=== PATIENT | male | born 1960 | race Caucasian/White ===

== ENCOUNTER 2016-09-24 19:53 | Emergency (ER) | payer OTHER ==
[~2016-09-24] VITALS: Ht 177.8 cm; Wt 92.7 kg
[~2016-09-24 19:53] MED LIST: CYCL10TA9 PO; HYDR-4003 PO; LISI10TA2 PO; LORA0.5T PO
[2016-09-24 19:57] VITALS: BP 184/113; PULSE 92; RESP 18; O2SAT 98
--- NOTE | 2016-09-24 20:02 | ED.REPORT ---
HPI-Extremity Problem Upper Date of Service Sep 24, 2016 ED Provider: Dr. Epps Pt is a generally healthy 56 y/o male presenting to the ED c/o left elbow pain and swelling onset about 2 days ago. The patient fell 2 weeks ago and had an elbow laceration for which sutures were placed. The sutures were removed 2 days ago. Pt denies fever, chills, rash. He has no history of surgeries about the elbow. 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 Nursing Notes Stated Complaint: LEFT ELBOW SWELLING Chief Complaint: Extremity Trauma Nursing Notes Reviewed: Yes Allergies: Coded Allergies: codeine (Verified Allergy, Unknown, 09/24/16) Scheduled Lisinopril (Lisinopril) 10 Mg Tablet 10 MG PO DAILY Scheduled PRN Cyclobenzaprine (Cyclobenzaprine) 10 Mg Tablet 10 MG PO TID PRN PRN Spasm Hydrocodone-Acetaminophen 5-325 mg (Hydrocodone-Acetaminophen 5-325 mg) 1 Each Tablet 1 TABLET PO Q4H PRN PRN For Pain Lorazepam (Lorazepam) 0.5 Mg Tablet 1 TAB PO TID PRN PRN For Anxiety General Time Seen by MD: 20:01 Chief Complaint Elbow injury left Hx Obtained From: Patient Arrived By: Walk-in Onset Occurred: 2 days ago Symptom Duration: Since onset Location: : Elbow left Quality: Painful Severity: Current: Mild Severity: Maximum: Mild Recent Healthcare: Recent doctor visit Similar Sx Previous: No Past Medical History Past Medical History Notes: PCP: Duncan Corey Past Medical History GI bleed Hypertension The 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 Physical Exam Initial Vital Signs Vital Signs (First) Date Time Temp Pulse Resp B/P Pulse Ox O2 Delivery O2 Flow Rate FiO2 09/24/16 19:57 36.7 92 18 184/113 98 Room Air Initial VS: Reviewed, Vital signs abnormal Head / Eyes: Atraumatic, Normocephalic, PERRL ENT: Mucous membranes moist, Conjunctiva normal, No scleral icterus Neck: Supple, Full range of motion Respiratory: Breath sounds normal, Clear to auscultation, No respiratory distress Cardiovascular: Regular rate & rhythm, Heart sounds normal, Intact distal pulses Abdomen / GI: Soft, No distention Lower Extremities: Vascular intact, Neuro intact, No swelling Skin: Warm, Dry, No cyanosis Neurologic: Alert, Oriented, Nonfocal Psychiatric: Mood/affect normal, Behavior normal, Normal thought content General/Constitutional: Awake, Alert, No acute distress, Well appearing, Cooperative, Not toxic appearing Upper Extremity / MS: No deformity, Neurologic intact, Vascular intact Swelling of the L olecranon bursa with fluctuance. Minimally tender. FROM of elbow. No induration. Consistent with olecranon bursitis Interpretation & Diagnostics X-Ray Interpretation X-Ray Ordered: Elbow left Interpretation / Wet Read by: Wet read ED physician Interpretation: No fracture/dislocation Re-Eval/Medical Decision Med Decision/Clinical Course Pt is a generally healthy 56 y/o male presenting to the ED c/o left elbow pain and swelling onset about 2 days ago. The patient fell 2 weeks ago and had an elbow laceration for which sutures were placed. The sutures were removed 2 days ago. Pt denies fever, chills, rash. He has no history of surgeries about the elbow. 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 Here in the emergency department the patient is afebrile. Vital signs examination as above. Plain films were obtained as documented above and demonstrated no fracture or dislocation. All he has had sutures in his left elbow there is no evidence whatsoever of abscess, cellulitis or septic arthritis. He has obvious olecranon bursitis and do not feel that any immediate intervention is indicated. He is advised to take NSAIDs, elevate his arm and is provided with Marito bandage for compression. If he develops redness, warmth, pain or increasing swelling he is to return to the emergency department. He will follow -up with orthopedic surgery on an outpatient basis. I feel that he is appropriate for discharge at this time. Prior to discharge follow-up and return precautions were reviewed in detail with the patient who verbalized understanding and agreement with the plan. The patient was discharged in stable condition. Re-Evaluation/Progress : Time of Eval: 20:33 Re-Evaluation/Progress Note: F/U instructions and RTER warnings given. All questions addressed. Counseled Regarding: Diagnosis, Need for follow-up, When/why to return to ED Discharge & Departure Impression: Primary Impression: Olecranon bursitis of left elbow Disposition: Home Discharge Condition All VS Reviewed: Yes Condition: Stable Patient Instructions: Elbow Bursitis (ED) Additional Instructions: Thank you for seeking care at the emergency room. Your symptoms and exam are consistent with olecranon bursitis. Our primary goal today in the ED was to evaluate you for any life-threatening conditions. Your evaluation was reassuring. Take Ibuprofen 600 mg every 6 hours as needed for discomfort. Keep an marito bandage on it for compression. You can also use ice packs. Elevate it when possible. You should follow-up with an orthopedist in 1 week. The referral information for Dr. Clark is below. You should return to the ED immediately if you develop fever, chills, worsening swelling, warmth, worsening pain, rash, or any other concerning signs or symptoms. Thank you for letting us partake in your care today. Referrals: Kai Riley MD (PCP) Zeyad Clark MD Attestation Portions of this note were transcribed by Arie Kaba. I, Dr. Epps personally performed the history, physical exam and medical decision-making; I reviewed and confirmed the accuracy of the information in the transcribed note. Signed by Lakesha Lemus, 09/24/162029 copies to: Kai Riley MD; Zeyad Clark MD, Beck O MD Sep 24, 2016 20:02 ARIE KABA Sep 24, 2016 20:16
--- NOTE | 2016-09-24 20:49 | DRSVH ---
PROCEDURE: X-RAY LEFT ELBOW COMPLETE, MINIMUM THREE VIEWS ([id number]) INDICATIONS: Swelling TECHNIQUE: 3 views of the elbow were acquired. COMPARISON: None. FINDINGS: Bones: No fractures or dislocations. No suspicious bony lesions. Soft tissues: No elbow joint effusion. No suspicious soft tissue calcifications. IMPRESSION: No fracture Dictated by: Kashmir Thao M.D. on 09/24/2016 at 20:46 Approved by: Kashmir Thao M.D. on 09/24/2016 at 20:47
== END 2016-09-24 20:41 | disposition home or self-care (01) ==
LOC: SED 19:53
DX: M70.22 Olecranon bursitis, left elbow (principal); I10 Essential (primary) hypertension; F17.200 Nicotine dependence, unspecified, uncomplicated; Z87.828 Personal history of other (healed) physical injury and trauma; Z88.5 Allergy status to narcotic agent